=== PATIENT | female | born 1990 | race Native Hawaiian/Other Pacific Islander ===

== ENCOUNTER 2016-11-18 01:10 | Emergency (ER) | payer OTHER ==
[~2016-11-18] VITALS: Ht 167.6 cm; Wt 79.8 kg
== END 2016-11-18 02:37 | disposition home or self-care (01) ==
LOC: ED 01:10
DX: O26.892 Other specified pregnancy related conditions, second trimester (principal); Z3A.19 19 weeks gestation of pregnancy
CPT/HCPCS: 81000; 99284

== ENCOUNTER 2018-06-20 07:01 | Emergency (ER) | payer OTHER ==
[~2018-06-20] VITALS: Ht 167.6 cm; Wt 71.7 kg
[2018-06-20 07:20] VITALS: TEMP 97.9
[2018-06-20 08:20] LABS: PLATELET COUNT 222 K/uL (152-353)
[2018-06-20 11:13] VITALS: BP 112/68
== END 2018-06-20 11:16 | disposition home or self-care (01) ==
LOC: ED 07:01
DX: K59.00 Constipation, unspecified (principal); R10.9 Unspecified abdominal pain
CPT/HCPCS: 36415; 80053; 81000; 81025; 85027; 99283; Q9963

== ENCOUNTER 2018-07-29 14:03 | Outpatient (CLI) | payer BC | END 2018-07-29 21:24 | disposition home or self-care (01) | LOC: RAD 14:03 | DX: M54.5 Low back pain (principal); G89.29 Other chronic pain; R29.898 Other symptoms and signs involving the musculoskeletal system ==

== ENCOUNTER 2018-10-19 07:21 | Emergency (ER) | payer OTHER ==
[~2018-10-19] VITALS: Ht 167.6 cm; Wt 71.7 kg
[2018-10-19 08:21] VITALS: BP 124/72; TEMP 99.3
== END 2018-10-19 08:21 | disposition home or self-care (01) ==
LOC: ED 07:21
DX: R50.9 Fever, unspecified (principal); R52 Pain, unspecified; J02.9 Acute pharyngitis, unspecified; J11.1 Influenza due to unidentified influenza virus with other respiratory manifestations
CPT/HCPCS: 87502; 87651; 99283

== ENCOUNTER 2018-11-13 07:39 | Emergency (ER) | payer OTHER ==
[~2018-11-13] VITALS: Ht 167.6 cm; Wt 68.0 kg
[2018-11-13 07:49] VITALS: TEMP 97.9
[2018-11-13 09:48] VITALS: BP 121/64
== END 2018-11-13 09:49 | disposition home or self-care (01) ==
LOC: ED 07:39
DX: R07.81 Pleurodynia (principal); J40 Bronchitis, not specified as acute or chronic
CPT/HCPCS: 94664; 96372; 99283; J1885

== ENCOUNTER 2019-11-27 16:56 | Emergency (ER) | payer OTHER ==
[~2019-11-27] VITALS: Ht 167.6 cm; Wt 77.1 kg
[2019-11-27 19:37] VITALS: BP 116/61; TEMP 98.2
== END 2019-11-27 19:52 | disposition home or self-care (01) ==
LOC: ED 16:56
PROC: 0JQN0ZZ Repair Right Lower Leg Subcutaneous Tissue and Fascia, Open Approach (ICD-10-PCS; principal; 2019-11-27)
DX: S81.811A Laceration without foreign body, right lower leg, initial encounter (principal); W54.0XXA Bitten by dog, initial encounter
CPT/HCPCS: 99283; J7040

== ENCOUNTER 2021-05-25 09:22 | Outpatient (CLI) | payer OTHER | END 2021-05-25 20:09 | disposition home or self-care (01) | LOC: RAD 09:22 | PROVIDERS: ATTEND Nurse Practitioner Family | DX: F41.8 Other specified anxiety disorders (principal); Z13.31 Encounter for screening for depression; M54.9 Dorsalgia, unspecified; R21 Rash and other nonspecific skin eruption; L02.91 Cutaneous abscess, unspecified ==

== ENCOUNTER 2021-06-08 08:49 | Outpatient (CLI) | payer OTHER | END 2021-06-08 19:08 | disposition home or self-care (01) | LOC: RESP 08:49 | PROVIDERS: ATTEND Nurse Practitioner Family | DX: F41.1 Generalized anxiety disorder (principal); M54.9 Dorsalgia, unspecified; R21 Rash and other nonspecific skin eruption; E66.9 Obesity, unspecified; R00.2 Palpitations | CPT/HCPCS: 93005 ==